=== PATIENT | male | born 1950 ===

== ENCOUNTER 2018-08-20 10:22 | Outpatient (CLI) | payer OTHER | END 2018-08-20 10:24 | disposition home or self-care (01) | LOC: SONOGRAMA 10:22 | DX: M25.551 Pain in right hip (principal) ==

== ENCOUNTER 2024-04-01 09:18 | Outpatient (CLI) | payer OTHER | END 2024-04-01 09:19 | disposition home or self-care (01) | LOC: SONOGRAMA 09:18 | PROVIDERS: ATTEND Family Medicine | DX: M70.62 Trochanteric bursitis, left hip (principal); M25.552 Pain in left hip ==